=== PATIENT | male | born 1995 | race Caucasian/White ===

== ENCOUNTER 2018-12-05 08:47 | Emergency (ER) | payer OTHER ==
[~2018-12-05] VITALS: Ht 175.3 cm; Wt 106.6 kg
[2018-12-05 08:52] VITALS: BP 120/63
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
--- NOTE | 2018-12-05 09:36 | NUR ---
Dr. Guerrero evaluating patient at bedside.
[2018-12-05 10:20] VITALS: BP 132/68
--- NOTE | 2018-12-05 10:20 | NUR ---
Patient discharged with v/s stable. Written and verbal after care instructions given and explained. Patient alert, oriented and verbalized understanding of instructions. Ambulatory with steady gait. All questions addressed prior to discharge. ID band removed. Patient advised to follow up with PMD. Rx of benadryl given. Excuse from work note provided. Patient educated on indication of medication including possible reaction and side effects. Opportunity to ask questions provided and answered.
== END 2018-12-05 10:20 | disposition home or self-care (01) ==
LOC: MED 08:47
DX: S80.862A Insect bite (nonvenomous), left lower leg, initial encounter (principal); S80.861A Insect bite (nonvenomous), right lower leg, initial encounter; W57.XXXA Bitten or stung by nonvenomous insect and other nonvenomous arthropods, initial encounter; Y93.89 Activity, other specified; Y92.89 Other specified places as the place of occurrence of the external cause; Y99.8 Other external cause status
CPT/HCPCS: 99283

== ENCOUNTER 2019-01-12 10:22 | Emergency (ER) | payer OTHER ==
[~2019-01-12] VITALS: Ht 175.3 cm; Wt 107.0 kg
[2019-01-12 10:47] VITALS: BP 128/79
--- NOTE | 2019-01-12 10:51 | NUR ---
PT AMBULATED TO LOBBY AT THIS TIME, VSS.
--- NOTE | 2019-01-12 11:51 | NUR ---
PT TO ER BED 9
--- NOTE | 2019-01-12 12:01 | NUR ---
PT C/O LEFT KNEE PAIN AFTER GETTING TACKLED WHILE PLAYING FOOTBALL. BELIEVES THE KNEE TWISTED THE WRONG WAY. SHARP SHOOTING PAIN THAT DOES NOT RADIATE. PAIN 8/. HAS NOT TAKEN ANYTHING FOR THE PAIN. MEDHX: DENIES RX: DENIES
--- NOTE | 2019-01-12 12:05 | NUR ---
Dr. Crow evaluating patient at bedside.
[2019-01-12] MEDS ORDERED: KETOROLAC 30 MG/ML VIAL IM ONE (12:10)
[2019-01-12 12:40] VITALS: BP 108/47
--- NOTE | 2019-01-12 12:40 | NUR ---
Patient discharged with v/s stable. Written and verbal after care instructions given and explained. Patient alert, oriented and verbalized understanding of instructions. Ambulatory with steady gait. All questions addressed prior to discharge. ID band removed. Patient advised to follow up with PMD. Rx of Naprosyn 500mg given. Patient educated on indication of medication including possible reaction and side effects. Opportunity to ask questions provided and answered.
== END 2019-01-12 12:40 | disposition home or self-care (01) ==
LOC: MED 10:22
DX: S83.92XA Sprain of unspecified site of left knee, initial encounter (principal); W19.XXXA Unspecified fall, initial encounter; Y93.61 Activity, american tackle football; Y92.89 Other specified places as the place of occurrence of the external cause; Y99.8 Other external cause status
CPT/HCPCS: 29505; 73562; 96372; 99283; J1885

== ENCOUNTER 2019-11-18 22:44 | Emergency (ER) | payer OTHER ==
[~2019-11-18] VITALS: Ht 177.8 cm; Wt 108.9 kg
--- NOTE | 2019-11-18 22:44 | NUR ---
CHEL FERNANDEZ, PREBOOK. TAKEN TO CHAIR C
[2019-11-18 22:48] VITALS: BP 141/81
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
--- NOTE | 2019-11-18 23:04 | NUR ---
PT DISCHARGED BACK TO [facility] [employer] [place] [address]. VSS. WRISTBAND REMOVED.
== END 2019-11-18 23:04 ==
LOC: MED 22:44
DX: M54.5 Low back pain (principal); Z02.89 Encounter for other administrative examinations
CPT/HCPCS: 99283

== ENCOUNTER 2023-05-10 07:47 | Emergency (ER) | payer OTHER ==
[~2023-05-10] VITALS: Ht 177.8 cm; Wt 112.9 kg
[2023-05-10 07:50] VITALS: BP 115/74; PULSE 86; RESP 15; TEMP 97.1; O2SAT 96
[2023-05-10] MEDS ORDERED: ONDANSETRON 4 MG ODT PO ONE (08:15)
[2023-05-10] MEDS ORDERED: ONDA-188 PO (08:21)
[2023-05-10 08:48] LABS: FLU A ANTIGEN negative (NEGATIVE); FLU B ANTIGEN negative (NEGATIVE)
== END 2023-05-10 09:03 | disposition home or self-care (01) ==
LOC: MED 07:47
DX: K52.9 Noninfective gastroenteritis and colitis, unspecified (principal); Z79.899 Other long term (current) drug therapy
CPT/HCPCS: 87426; 87804; 99283; Q0162

== ENCOUNTER 2024-01-06 05:35 | Emergency (ER) | payer OTHER ==
[~2024-01-06] VITALS: Ht 175.3 cm; Wt 113.4 kg
[~2024-01-06 05:35] MED LIST: ONDA-188 PO
[2024-01-06 05:39] VITALS: BP 124/61; PULSE 72; RESP 20; TEMP 98.7; O2SAT 95
[2024-01-06 05:55] VITALS: BP 124/61; PULSE 72; RESP 20; TEMP 98.7
[2024-01-06 05:56] VITALS: O2SAT 95
[2024-01-06] MEDS ORDERED: PRED20TA5 PO (06:11)
[2024-01-06] MEDS ORDERED: DIPH25TA53 PO (06:11)
== END 2024-01-06 06:21 | disposition home or self-care (01) ==
LOC: MED 05:35
DX: L50.9 Urticaria, unspecified (principal); T78.40XA Allergy, unspecified, initial encounter; Z79.1 Long term (current) use of non-steroidal anti-inflammatories (NSAID); Z79.899 Other long term (current) drug therapy; X58.XXXA Exposure to other specified factors, initial encounter; Y93.89 Activity, other specified; Y92.89 Other specified places as the place of occurrence of the external cause; Y99.8 Other external cause status
CPT/HCPCS: 99283

== ENCOUNTER 2024-02-06 07:37 | Emergency (ER) | payer OTHER ==
[~2024-02-06] VITALS: Ht 175.3 cm; Wt 110.2 kg
[~2024-02-06 07:37] MED LIST changes: +DIPH25TA53 PO; +PRED20TA5 PO
[2024-02-06 07:39] VITALS: BP 110/72; PULSE 63; RESP 16; TEMP 97.5; O2SAT 96
[2024-02-06] MEDS: PENICILLIN G BENZATHINE L-A 1.2 MU/2 ML SYR IM ONE (08:03)
[2024-02-06] MEDS: KETOROLAC 60 MG/2 ML VIAL IM ONE (08:08)
[2024-02-06] MEDS ORDERED: IBUP-2213 PO (08:13)
[2024-02-06] MEDS ORDERED: PRED20TA5 PO (08:13)
[2024-02-06 08:25] VITALS: BP 110/72; PULSE 63; RESP 16; TEMP 97.5; O2SAT 96
== END 2024-02-06 08:27 | disposition home or self-care (01) ==
LOC: MED 07:37
DX: J02.0 Streptococcal pharyngitis (principal); Z79.899 Other long term (current) drug therapy
CPT/HCPCS: 96372; 99284; J0561; J1885

== ENCOUNTER 2024-02-19 10:20 | Emergency (ER) | payer OTHER ==
[~2024-02-19] VITALS: Ht 175.3 cm; Wt 110.2 kg
[~2024-02-19 10:20] MED LIST changes: +IBUP-2213 PO
[2024-02-19 10:26] VITALS: BP 115/61; PULSE 65; RESP 16; TEMP 98.2; O2SAT 96
[2024-02-19] MEDS: KETOROLAC 60 MG/2 ML VIAL IM ONE (10:57)
[2024-02-19] MEDS ORDERED: ACET-8905 PO (11:08)
[2024-02-19 11:26] VITALS: BP 115/61; PULSE 65; RESP 16; TEMP 98.2; O2SAT 96
== END 2024-02-19 11:25 | disposition home or self-care (01) ==
LOC: MED 10:20
DX: M54.50 Low back pain, unspecified (principal); Z79.899 Other long term (current) drug therapy
CPT/HCPCS: 96372; 99283; J1885

== ENCOUNTER 2024-02-27 05:10 | Emergency (ER) | payer OTHER ==
[~2024-02-27] VITALS: Ht 175.3 cm; Wt 104.3 kg
[~2024-02-27 05:10] MED LIST changes: +ACET-8905 PO
[2024-02-27 05:12] VITALS: BP 110/63; PULSE 62; RESP 14; TEMP 97.5; O2SAT 99
[2024-02-27] MEDS ORDERED: CYCL-711 PO (06:11)
[2024-02-27] MEDS ORDERED: PRED20TA5 PO (06:11)
== END 2024-02-27 06:15 | disposition home or self-care (01) ==
LOC: MED 05:10
DX: G57.02 Lesion of sciatic nerve, left lower limb (principal); Z79.899 Other long term (current) drug therapy
CPT/HCPCS: 99283